=== PATIENT | female | born 1955 | race Caucasian/White ===

== ENCOUNTER 2017-03-01 09:57 | Inpatient (IN) | payer OTHER, MEDICAID ==
[~2017-03-01] VITALS: Ht 167.6 cm; Wt 73.5 kg
[2017-03-01 10:00] VITALS: BP_SYST 151
[2017-03-01] MEDS ORDERED: ONDANSETRON HCL 4 MG/2 ML VIAL IVP ONE (10:30)
[2017-03-01] MEDS ORDERED: NS 500 ML IV ONE (10:30)
[2017-03-01 11:07] LABS: BASOPHILS % (AUTO) 0.2 % (0.0-2.0); EOSINOPHILS # (AUTO) 0.1 K/uL (0.0-0.4); EOSINOPHILS % (AUTO) 1.2 % (0.0-4.0); HEMATOCRIT 44.2 % (36-48); HEMOGLOBIN 13.9 g/dL (12.0-16.0); LYMPHOCYTES # (AUTO) 0.5 K/uL (1.0-5.5); LYMPHOCYTES % (AUTO) 4.6 % (20.5-51.5); MEAN CORPUSCULAR HEMOGLOBIN 29 pg (27-31); MEAN CORPUSCULAR HGB CONC 31 % (32-36); MEAN CORPUSCULAR VOLUME 92 fL (79.0-98.0); MONOCYTES # (AUTO) 0.8 K/uL (0.0-1.0); NEUTROPHILS # (AUTO) 9.1 K/uL (1.8-7.7); PLATELET COUNT (AUTO) 218 K/uL (130-430); RED BLOOD CELL COUNT(AUTO) 4.82 MIL/uL (4.2-6.2); RED CELL DISTRIBUTION WIDTH 14.2 % (9.0-15.0); WHITE BLOOD COUNT (AUTO) 10.5 K/uL (4.8-10.8)
[2017-03-01 11:16] LABS: CALCIUM 10.2 mg/dL (8.4-11.0); CREATININE 2.18 mg/dL (0.55-1.30); POTASSIUM 3.3 mmol/L (3.5-5.1)
[2017-03-01 11:17] LABS: INR 1.1 (0.8-1.2); PROTHROMBIN TIME 11.4 SECS (9.5-12.5)
[2017-03-01 11:21] LABS: ALBUMIN 4.6 g/dL (3.4-4.8); TOTAL BILIRUBIN 0.6 mg/dL (0.0-1.0); TOTAL PROTEIN, SERUM 7.8 g/dL (6.4-8.3)
[2017-03-01] MEDS ORDERED: POTASSIUM CHLORIDE 40 MEQ in NS 250 ML IV ONE (11:45)
[2017-03-01] MEDS ORDERED: TACR1CAP PO (11:46)
[2017-03-01] MEDS ORDERED: VITD2000 PO (11:46)
[2017-03-01] MEDS ORDERED: myfortic PO (11:46)
[2017-03-01] MEDS ORDERED: LOVA20TA2 PO (11:46)
[2017-03-01] MEDS ORDERED: CALC-112 PO (11:46)
[2017-03-01] MEDS ORDERED: MULT-1164 PO (11:46)
[2017-03-01] MEDS ORDERED: FLOR.1 PO (11:46)
[2017-03-01] MEDS ORDERED: PRED5TAB PO (11:46)
[2017-03-01] MEDS ORDERED: DULO60CA41 PO (11:46)
[2017-03-01] MEDS ORDERED: BIOT5000 PO (11:46)
[2017-03-01] MEDS ORDERED: LEVO25TA58 PO (11:46)
[2017-03-01] MEDS ORDERED: DOCU-144 PO (11:46)
[2017-03-01 12:21] LABS: BILIRUBIN,URINE 1+ (NEGATIVE); BLOOD, URINE NEGATIVE (NEGATIVE); CLARITY/URINE CLEAR (CLEAR); COLOR,URINE ORANGE (YELLOW); GLUCOSE,URINE NEGATIVE (NEGATIVE); KETONES,URINE TRACE (NEGATIVE); LEUKOCYTE ESTERASE ,URINE NEGATIVE (NEGATIVE); NITRITE, URINE NEGATIVE (NEGATIVE); PROTEIN URINE 1+ (NEGATIVE); UROBILINOGEN,URINE 0.2 (0.2-1.0)
[2017-03-01 12:24] LABS: BACTERIA,URINE RARE /HPF (None Seen); MUCUS,URINE 1+ /LPF (None Seen); RBC,URINE 0-3 /HPF (0-3); WBC,URINE 0-3 /HPF (0-3)
[2017-03-01] MEDS ORDERED: methylPREDNISolone SOD SUCC/PF 62.5 MG/ML VIAL IVP ONE (12:30)
[2017-03-01 12:33] VITALS: BP_SYST 141
[2017-03-01] MEDS ORDERED: ONDANSETRON HCL 4 MG/2 ML VIAL IVP PRN (13:00)
[2017-03-01] MEDS: NACL 0.9% 1,000 ML IV SCH ×2 (13:01→20:35)
[2017-03-01 13:11] LABS: AMYLASE 104 U/L (0-100); LIPASE 468 U/L (73-393)
[2017-03-01] MEDS: methylPREDNISolone SOD SUCC/PF 62.5 MG/ML VIAL IVP SCH ×2 (14:00→21:08)
[2017-03-01 16:35] VITALS: BP_SYST 140
[2017-03-01 19:30] VITALS: BP_SYST 135
[2017-03-01] MEDS ORDERED: MYFORTIC 360 MG PO SCH ×2 (21:00)
[2017-03-01] MEDS ORDERED: NON-FORMULARY MEDICATION (Biotin 5,000 MCG) PO SCH (21:00)
[2017-03-01] MEDS: TACROLIMUS ANHYDROUS 1 MG CAPSULE (PROGRAF) PO SCH (21:10)
[2017-03-01] MEDS: DOCUSATE SODIUM 100 MG CAPSULE PO SCH (21:10)
[2017-03-01] MEDS: CALCIUM CARBONATE/VITAMIN D3 1 TAB TABLET PO SCH (21:10)
[2017-03-01] MEDS: MYCOPHENOLATE MOFETIL 250 MG CAPSULE PO SCH (21:11)
[2017-03-01] MEDS ORDERED: TEMAZEPAM 15 MG CAPSULE PO PRN (22:30)
[2017-03-01] MEDS ORDERED: MORPHINE 2 MG/ML INJ. SYRINGE IVP PRN (22:30)
[2017-03-02 00:19] VITALS: BP_SYST 124
[2017-03-02] MEDS: NACL 0.9% 1,000 ML IV SCH ×2 (04:03→12:21)
[2017-03-02 04:27] VITALS: BP_SYST 136
[2017-03-02] MEDS: methylPREDNISolone SOD SUCC/PF 62.5 MG/ML VIAL IVP SCH (05:36)
[2017-03-02 06:30] LABS: HEMATOCRIT 36.9 % (36-48); MEAN CORPUSCULAR HEMOGLOBIN 30 pg (27-31); MEAN CORPUSCULAR HGB CONC 33 % (32-36); MEAN CORPUSCULAR VOLUME 92 fL (79.0-98.0); PLATELET COUNT (AUTO) 194 K/uL (130-430); RED BLOOD CELL COUNT(AUTO) 4.02 MIL/uL (4.2-6.2); RED CELL DISTRIBUTION WIDTH 14.1 % (9.0-15.0); WHITE BLOOD COUNT (AUTO) 6.9 K/uL (4.8-10.8)
[2017-03-02 06:48] LABS: ALBUMIN 3.5 g/dL (3.4-4.8); CALCIUM 8.5 mg/dL (8.4-11.0); CREATININE 1.72 mg/dL (0.55-1.30); FREE T4 (FREE THYROXINE) 1.2 ng/dL (0.6-1.6); POTASSIUM 3.7 mmol/L (3.5-5.1); THYROID STIMULATING HORMONE 0.45 uIu/mL (0.34-4.82); TOTAL BILIRUBIN 0.4 mg/dL (0.0-1.0); TOTAL PROTEIN, SERUM 6.4 g/dL (6.4-8.3)
[2017-03-02] MEDS ORDERED: LEVOTHYROXINE SODIUM 0.025 MG TABLET PO SCH (07:00)
[2017-03-02 08:25] VITALS: BP_SYST 144
[2017-03-02] MEDS ORDERED: CHOLECALCIFEROL (VITAMIN D3) 2,000 UNIT TABLET PO SCH (09:00)
[2017-03-02] MEDS ORDERED: DULoxetine HCL 30 MG CAPSULE.DR (CYMBALTA) PO SCH (09:00)
[2017-03-02] MEDS ORDERED: MULTIVITS,CA,MINERALS/IRON/FA 1 TABLET PO SCH (09:00)
[2017-03-02] MEDS: MYCOPHENOLATE MOFETIL 250 MG CAPSULE PO SCH (09:30)
[2017-03-02] MEDS: DOCUSATE SODIUM 100 MG CAPSULE PO SCH (09:30)
[2017-03-02] MEDS: CALCIUM CARBONATE/VITAMIN D3 1 TAB TABLET PO SCH (09:33)
[2017-03-02] MEDS: TACROLIMUS ANHYDROUS 1 MG CAPSULE (PROGRAF) PO SCH (09:34)
[2017-03-02 12:13] VITALS: BP_SYST 142
[2017-03-02] MEDS ORDERED: methylPREDNISolone SOD SUCC 40 MG/ML VIAL IVP SCH (14:00)
[2017-03-02 16:10] VITALS: BP_SYST 145
[2017-03-02] MEDS ORDERED: SIMVASTATIN 10 MG TABLET PO SCH (18:00)
[2017-03-02 18:48] VITALS: BP_SYST 145
== END 2017-03-02 19:15 | disposition home or self-care (01) | DRG 388 ==
LOC: SED 09:57 → STU 11:49
PROVIDERS: ADMIT Internal Medicine; ATTEND Internal Medicine
DX: K56.7 Ileus, unspecified (principal); N17.0 Acute kidney failure with tubular necrosis; Z94.0 Kidney transplant status; Z94.83 Pancreas transplant status; N13.30 Unspecified hydronephrosis; I12.0 Hypertensive chronic kidney disease with stage 5 chronic kidney disease or end stage renal disease; E86.0 Dehydration; E03.9 Hypothyroidism, unspecified; E78.5 Hyperlipidemia, unspecified; F32.9 Major depressive disorder, single episode, unspecified; K29.70 Gastritis, unspecified, without bleeding; E87.6 Hypokalemia; I95.89 Other hypotension; E11.22 Type 2 diabetes mellitus with diabetic chronic kidney disease; R55 Syncope and collapse; Z88.0 Allergy status to penicillin; Z99.2 Dependence on renal dialysis; Z79.899 Other long term (current) drug therapy
CPT/HCPCS: 36415; 71010; 74000-TC; 74150-TC; 76700-TC; 80053; 81000-TC; 82150-TC; 82550-TC; 83605; 83690-TC; 83880; 84439; 84443-TC; 84484; 85025; 85610-TC; 87040-TC; 93005; 96365; 96375; 99285; J1030; J2270; J2405; J2930; J3480; J7030; J7040; J7050; J7507; J7517